=== PATIENT | male | born 1995 | race Caucasian/White ===

== ENCOUNTER 2025-06-27 13:44 | Emergency (ER) | payer OTHER, SELFPAY ==
[2025-06-27 13:47] VITALS: BP 133/86
--- NOTE | 2025-06-27 14:41 | ED.GENMED ---
History of Present Illness
General
Chief Complaint: Skin Problem
Source: patient
Exam Limitations: none
Time Seen by Provider: 06/27/25 14:03
History of Present Illness
History of Present Illness:
30yoM with a history of anxiety and depression presenting for evaluation of a rash. Patient started to become sick with URI symptoms about 3 to 4 weeks ago. He reports being under a lot of stress recently and has not been sleeping well. He
developed a rash on his face and upper back about 2 weeks ago. He was seen by his PCP last week and was diagnosed with impetigo and prescribed mupirocin ointment. He was also having some penile discharge and a urinalysis and GC/chlamydia testing
were sent. Urine to have apparently showed elevated white blood cells but STD testing was negative. His rash seems improved in places but worsened in other spots. He admits to frequent picking/scratching of the area. He woke up today and noticed
a sore on his upper lip that is painful. He denies any fevers or chills. No history of IV drug use. He denies concern for STDs.
Phy Exam
General Physical Exam
General Presentation: well appearing and no apparent distress
General Skin: warm and dry
General Habitus: normal
General Mental: alert
ENT Exam
ENT Exam: pharynx normal (No oral lesions), neck supple and normocephalic
Pulmonary Exam
Pulmonary Exam: lungs clear, no respiratory distress, no rales, chest non tender, no crackles, no rhonchi and no wheezing
Neurological Exam
Neurological Exam: alert
[place] Coma Scale
Eye Opening: Spontaneous
Verbal Response: Oriented
Motor Response: Obeys Commands
GCS Total Score: 15
Skin Exam
Skin Exam: warm/dry and other (Scattered excoriations/areas of erythema noted to lower chin and upper back. Ulceration noted to upper lip. No obvious vesicular lesions, area painful to touch. No skin sloughing. )
Psychiatric Exam
Psychiatric Exam: normal mood/affect
Course
Orders/Labs/Results
Orders:
Orders
06/27/25 14:42
Ibuprofen [Motrin] 600 mg PO NOW STA
06/27/25 14:54
Urinalysis Reflex To Culture Urgent
Date Specimen was Collected: 06/27/25
Time Specimen was Collected: 14:42
Urine Microscopic Reflex Cult Urgent
Urine Culture Urgent
LEONOR Source: U
Specimen Description:
Date Specimen was Collected: 06/27/25
Time Specimen was Collected: 14:42
06/27/25 15:53
Complete Blood Count/With Diff Urgent
Comprehensive Metabolic Panel Urgent
Abnormal Lab Results
06/27/25 06/27/25
14:54 15:53
Carbon Dioxide 31 H mmol/L
(22-30)
Glucose 102 H mg/dl
(70-99)
Urine Ketones 1+ A
(Negative)
Leukocyte Esterase Rfl 1+ A
(Negative)
Urine Bacteria (Reflex) Few A
(Negative)
Urine Albumin (Reflex) 1+ A
(Neg - Trace)
06/27/25 15:53
06/27/25 15:53
Vital Signs
Initial and Last Documented VS:
Initial Vital Signs
Temp Pulse Resp BP Pulse Ox
98.5 F 104 18 133/86 100
06/27/25 13:47 06/27/25 13:47 06/27/25 13:47 06/27/25 13:47 06/27/25 13:47
Last Documented Vital Signs
Temp Pulse Resp BP Pulse Ox
98.5 F 104 18 133/86 100
06/27/25 13:47 06/27/25 13:47 06/27/25 13:47 06/27/25 13:47 06/27/25 14:42
MDM/Problems Addressed
Differential Diagnosis Includes:
30yoM here with ongoing rash x 2 weeks. Prescribed mupirocin ointment by PCP for impetigo. Now with new sore on upper lip today. Scattered areas of erythema/excoriations noted on exam and patient admits to skin picking. There is an ulceration to
upper lip without obvious vesicular lesions. No oral lesions noted and patient non-toxic with stable vitals.
Labs obtained which are unremarkable including normal white count. Unclear etiology of symptoms. Will cover with Keflex as well as Valtrex for possible HSV. He was advised to avoid skin picking. Advised f/u with PCP and dermatology if symptoms
persist. ED return precautions reviewed and he was discharged in stable condition.
*Pulse Oximetry
SaO2: 100
Oxygen Mode of Delivery: Room air
Patient hypoxic: no
*Critical Care Note
Total Time (30-74mins, 75-104mins- exclusive of procedures): Not Applicable
ED Attending Note
-
Portions of this chart may have been created with voice recognition software.� Occasional wrong word or��sound alike� substitutions may have occurred due to the inherent limitations of voice recognition software.
Discharge Plan
Departure
Patient Disposition: Home (Routine Discharge)
Date of Disposition: 06/27/25
Time of Disposition: 17:04
Patient with high blood pressure during this ER visit?: No
Discharge Problem:
Rash and nonspecific skin eruption, Cold sore
Instructions: Skin Rash (DC)
Prescriptions:
New
cephalexin 500 mg capsule
500 mg PO Q6H 7 Days Qty: 28 0RF
valacyclovir [Valtrex] 1 gram tablet
1,000 mg PO BID Qty: 14 0RF
Referrals:
Jennyfer Quinn MD [Consulting Staff, Dermatology]
UNKNOWN - PT DOES,NOT KNOW [Family Provider]
Activity Restrictions/Additional Instructions:
Take antibiotics and antiviral medications as prescribed.
Please follow-up with your family doctor as well as dermatology if your symptoms persist. Return to the ER with any new or worsening symptoms including fevers.
Interventions
Interventions:
*General Assessment Last Done: 06/27/25 14:59
*Neglect/Abuse Screening Last Done: 06/27/25 14:59
*ED COVID-19 Vaccine History Last Done: 06/27/25 14:01
*ED Influenza Vaccine History Last Done: 06/27/25 14:01
[facility] Fall Risk Assessment Tool Last Done: 06/27/25 14:59
*Risk Screen - Suicide (C-SSRS) Last Done: 06/27/25 13:45
*Nursing Disposition Last Done: 06/27/25 17:16
ED-Skin Assessment Last Done: 06/27/25 17:16
Discharge Date and Time
Discharge Date/Time: 06/27/25 17:17
Print Language: [id number]
[2025-06-27] MEDS: MOTRIN 600 MG PO (14:53)
[2025-06-27 15:15] LABS: Urine Character Clear (Clear)
[2025-06-27 15:33] LABS: Urine Red Blood Cell 0-2 /HPF (0-2); Urine Squamous Cell 0-2 /LPF (Few)
[2025-06-27 16:08] LABS: Hematocrit 43.8 % (39.0-52.0); Hemoglobin 15.1 g/dL (13.0-18.0); Mean Corp Hgb Conc. 34.5 g/dL (33.0-37.0); Mean Corpuscular Volume 88.5 fL (80.0-94.0); Nucleated Red Blood Cells % 0 % (-); Platelet Count 253 10^3/uL (130-400); Red Cell Dist. Width 11.8 % (11.5-14.5)
[2025-06-27 16:19] LABS: ALT (SGPT) 20 U/L (0-50); AST (SGOT) 17 U/L (17-59); Albumin 4.6 g/dl (3.5-5.0); Alkaline Phosphatase 65 U/L (38-126); Blood Urea Nitrogen 12 mg/dl (9-20); Calcium 9.7 mg/dl (8.4-10.2); Carbon Dioxide 31 mmol/L (22-30); Chloride 103 mmol/L (98-107); Glucose 102 mg/dl (70-99); Potassium 4.7 mmol/L (3.5-5.1); Sodium 138 mmol/L (135-145); Total Protein 8.1 g/dl (6.3-8.2); eGFR > 60.00
== END 2025-06-27 17:17 | disposition home or self-care (01) ==
LOC: EMR 13:44
PROVIDERS: Physician Assistant; EMERGENCY PHYSICIAN Emergency Medicine
DX: R21 Rash and other nonspecific skin eruption (principal); B00.1 Herpesviral vesicular dermatitis; F41.9 Anxiety disorder, unspecified; F32.A Depression, unspecified
CPT/HCPCS: 99283; 80053; 81003; 81015; 85025; 87086